=== PATIENT | female | born 1980 | race Caucasian/White ===

== ENCOUNTER 2017-09-14 08:14 | Inpatient (IN) | payer BC, OTHER ==
[~2017-09-14] VITALS: Ht 154.9 cm; Wt 84.0 kg
[~2017-09-14 08:14] MED LIST: DEXAMETHASONE 4 MG/ML 1 ML INJ ONE; GENT100P4 IV; GLYCOPYRROLATE 0.4 MG INJ ONE; NEOSTIGMINE 3 MG/3 ML SYRINGE ONE; ONDANSETRON 4 MG INJ ONE; TRAM50TA2 PO
[2017-09-14] MEDS ORDERED: ONDANSETRON 4 MG INJ IV STA ×3 (08:54→15:21)
[2017-09-14] MEDS ORDERED: SOD CHLORIDE 0.9% 1,000 ML IV STA ×2 (08:54→15:22)
[2017-09-14] MEDS ORDERED: morphine 4 MG/ML VIAL IV STA ×2 (08:54→11:18)
[2017-09-14] MEDS ORDERED: KETOROLAC 30 MG INJ IV STA (08:54)
[2017-09-14 09:47] LABS: ADD UMIC YES; UR ASCORBIC ACID 20 mg/dL (NEGATIVE); UR BACTERIA FEW /HPF (NONE SEEN); UR BILIRUBIN (Dip) NEGATIVE (NEGATIVE); UR BLOOD (Dip) 3+ mg/dL (NEGATIVE); UR CLARITY SLIGHTLY CLOUDY (CLEAR); UR COLOR YELLOW (YELLOW); UR GLUCOSE (Dip) NEGATIVE (NEGATIVE); UR KETONES (Dip) NEGATIVE (NEGATIVE); UR LEUKOCYTE ESTERASE (Dip) NEGATIVE Leu/ul (NEGATIVE); UR MUCUS FEW /HPF (NONE SEEN); UR NITRITE (Dip) NEGATIVE (NEGATIVE); UR RBC > 182 /HPF (0-5); UR SPECIFIC GRAVITY (Dip) 1.017 (1.003-1.030); UR TOTAL PROTEIN (Dip) 1+ mg/dl (NEGATIVE); UR UROBILINOGEN (Dip) NEGATIVE (NEGATIVE)
[2017-09-14 10:05] LABS: BASOPHILS % 0.2 % (0.0-2.0); EOSINOPHILS # 0.2 10^3/ul (0.0-0.5); EOSINOPHILS % 1.8 % (0.0-7.0); HEMATOCRIT 36.7 % (37.0-47.0); HEMOGLOBIN 10.9 g/dl (12.0-16.0); LYMPHOCYTES # 1.7 10^3/ul (0.8-2.9); LYMPHOCYTES % 19.3 % (15.0-51.0); MEAN CORPUSCULAR HEMOGLOBIN 22.1 pg (29.0-33.0); MEAN CORPUSCULAR HGB CONC 29.7 g/dl (32.0-37.0); MEAN CORPUSCULAR VOLUME 74.3 fl (82.0-101.0); MEAN PLATELET VOLUME 11.1 fl (7.4-10.4); MONOCYTE # 0.4 10^3/ul (0.3-0.9); MONOCYTES % 4.1 % (0.0-11.0); NEUTROPHIL # 6.6 10^3/ul (1.6-7.5); NEUTROPHILS % 74.3 % (39.0-77.0); PLATELET COUNT 267 10^3/UL (140-415); RED BLOOD COUNT 4.94 10^6/ul (4.20-5.40); WHITE BLOOD COUNT 8.8 10^3/ul (4.8-10.8)
[2017-09-14 10:16] LABS: INR 0.99; PROTIME 13.1 Sec (12.2-14.2)
[2017-09-14 10:20] LABS: ALBUMIN 4.1 g/dl (3.3-4.9); ALBUMIN/GLOBULIN RATIO 1.07; BILIRUBIN,INDIRECT 0.2 mg/dl (0-1.1); BILIRUBIN,TOTAL 0.2 mg/dl (0.2-1.3); CALCIUM 8.8 mg/dl (8.4-10.2); CREATININE 0.67 mg/dl (0.44-1.00); POTASSIUM 3.6 mmol/L (3.5-5.1); TOTAL PROTEIN 7.9 g/dl (6.1-8.1)
--- NOTE | 2017-09-14 10:23 | RADRPT ---
PROCEDURE: US Pelvis CLINICAL INDICATION: Right lower quadrant pain TECHNIQUE: Sonographic evaluation of the pelvis was performed utilizing both transabdominal and tr ansvaginal technique. Curved array transabdominal transducer technique as well as a high frequency endovaginal probe was utilized. Images were reviewed on the high-resolution PACS workstation. COMPARISON: No prior studies are available for comparison. FINDINGS: The uterus is mildly enlarged, measuring 12.2 x 6.3 x 7.3 cm in dimension. The uterus is anteverted in normal position. The endometrium is normal for a menstrual age female measuring 7.4 mm in diam eter. The normal trilaminar stripe of the endometrium is preserved. The right ovary measures 3.6 x 2.2 x 2.6 cm in dimension. The left ovary is not visualized. There i s a simple appearing left adnexal cyst measuring 13.8 x 14.3 x 9.5 cm. The ovaries are symmetric in size, echogenicity, and morphology. Normal Doppler flow is demonstrated to both ovaries. There ar e no adnexal masses. There is no significant free fluid in the pelvis. IMPRESSION: 1. Simple appearing left adnexal cyst measuring 13.8 x 14.3 x 9.5 cm. The left ovary is not visual ized. 2. Otherwise, unremarkable pelvic ultrasound. RPTAT: HH .Jenna Youssef MD, MD Date Time Electronically viewed and signed by .Jenna Youssef MD, MD on 09/14/2017 10:23 .G/
[2017-09-14] MEDS ORDERED: IOHEXOL 300MG/ML 150 ML BTL ONE (10:54)
[2017-09-14] MEDS ORDERED: SOD CHLORIDE 0.9% 100 ML ONE (10:54)
--- NOTE | 2017-09-14 12:06 | RADRPT ---
PROCEDURE: CT Abdomen and Pelvis with contrast. CLINICAL INDICATION: Right lower quadrant pain TECHNIQUE: CT of the abdomen and pelvis was performed on a multi-detector scanner following the un complicated IV administration of 100 cc of Omnipaque 300. Coronal and sagittal images were reformat magy from the axial data set. One or more of the following dose reduction techniques were used: auto mated exposure control, adjustment of the mA and/or kV according to patient size, use of iterative r econstruction technique. CTDI = 21.99 mGy. DLP = 1308.18 mGy-cm. COMPARISON: CT, 07/17/2016 FINDINGS: The lung bases are clear. The heart size is normal, without pericardial effusion. Hepatomegaly (21 cm) is noted, without evidence of focal mass. Gallbladder, biliary tree, pancreas, spleen and adren al glands are unremarkable. Benign renal cysts are noted. There is question of subtle heterogeneous renal enhancement bilaterally, greater on the right. No urolithiasis or obstructive uropathy is iden tified. The stomach is grossly unremarkable. There is no abdominal aortic aneurysm or dissection. There is no retroperitoneal lymphadenopathy. The adarsh hepatis region is clear. No bowel obstruction, free intraperitoneal air or abscess is identified. There is no diverticulosis, diverticulitis, colitis or appendicitis. Large cystic structure is identified arising from left ova ry, measuring 14.5 x 9.4 x 13.0 cm (previously 7.5 x 6.1 x 6.1 cm). No gross evidence of solid compo nent or internal septation is identified. Uterus and right ovary are grossly unremarkable. No solid pelvic mass, free fluid or lymphadenopathy is identified. The surrounding osseous structures are unremarkable. No osteolytic or osteoblastic lesion is detect ed. IMPRESSION: 1. Large 14.5 cm cystic lesion is seen arising from left ovary, significantly increased in size whe n compared to the prior CT. No gross evidence of solid component or internal septation is identified . 2. Both kidneys demonstrate subtle heterogeneous enhancement, possibly indicating mild pyelonephrit is. No renal abscess, urolithiasis or obstructive uropathy is identified. 3. Hepatomegaly is noted, without evidence of focal mass. 4. No solid mass or lymphadenopathy is identified. RPTAT: AAOO .Heber Rendon MD, MD Date Time Electronically viewed and signed by .Heber Rendon MD, MD on 09/14/2017 12:06 .R/
[2017-09-14] MEDS ORDERED: CEFTRIAXONE 1 GM/50 ML (PMX) 50 ML IVPB ONE (12:30)
[2017-09-14 14:09] VITALS: TEMP 98.2
[2017-09-14 16:12] VITALS: Ht 154.9 cm; Wt 84.0 kg
[2017-09-14 16:13] VITALS: BP 114/60; PULSE 69; RESP 16
--- NOTE | 2017-09-14 17:28 | CONS ---
Date/Time of Note Date/Time of Note DATE: 09/14/17 TIME: 17:08 Assessment/Plan Assessment/Plan Chief Complaint/Hosp Course SuddenLower abdominal pain, sharp, N/A Left large adnexal cystic lesion Left ovary was not visualized. Can not r/o left ovarian torsion. Due to persistent pain and large left adnexal cystic mass. Discussed with patient regarding surgery. Risk and benefit of the procedure including risk of infection, bleeding, damage to surrounding structures including bowel and bladder risk of oophorectomy possible salpingo-oophorectomy possible blood transfusion as well as risk of conversion to open procedure and risk of scar, pain as well as risk of blood transfusion in case if necessary including blood borne infection including HIV, hepatitis B and C and transfusion reaction discussed with the patient in detail and informed consent was obtained. Currently has been n.p.o . patient will be admitted Will be booked for the OR Consented for possible diagnostic laparoscopy possible open laparotomy, possible ovarian cystectomy, possible oophorectomy or salpingo-oophorectomy, possible lysis of adhesion, possible blood transfusion. 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 Per patient, pain was sharp, sudden onset, could not drive or walk. Associated with nausea and vomiting. The patient pain was in the right side in the right lower quadrant. Started with her menses. LMP September 12, 2017. Patient reports always having pain in the right side with menstruation but the pain was not severe as she experiencing since yesterday. Patient denies any fever or chills. Past medical history significant for history of obesity and irregular menstrual cycle. Per patient Menstrual cycles has been always irregular every 1-2 month for the last 8 years. Bleeding lasts about 5 days and heavy. Past OB history significant for history of 2 and had a BTL with the last . Patient had a pelvic CT that showed a large 14 x 5 cm cystic lesion arising from the left ovary significantly increase in the size when compared to prior CT with no gross evidence of solid component or internal septation. There is also evidence of hepatomegaly without evidence of focal mass no evidence of solid mass or lymphadenopathy noted in CT of the abdomen and pelvic ultrasound there is a simple appearing left adnexal cyst measuring 13.8 x 14.3 x 9.3 cm and the left ovary could not be visualized as well as blood flow to the left ovary. Subjective hx not possible: other (Stable) Eyes: no complaints ENT: no complaints Respiratory: no complaints Cardiovascular: no complaints Gastrointestinal: pain Genitourinary: no complaints Musculoskeletal: no complaints Skin: no complaints Neurologic: no complaints Endocrine: no complaints Lymphatic: no complaints Psychological: no complaints Immunologic: no complaints Past Medical History : Past medical history: Obesity Past Surgical History C/S x 3 adn BTL Social History Mother: DM Alcohol Use: none Smoking Status: Never smoker Drug Use: none Exam/Review of Systems Vital Signs Vitals Vital Signs Date Time Temp Pulse Resp B/P Pulse Ox O2 Delivery O2 Flow Rate FiO2 09/14/17 16:13 97.0 69 16 114/60 98 Room Air Exam Constitutional: alert, distress (in moderate distress ), oriented Psych: nl mood/affect, no complaints Head: atraumatic, normocephalic Eyes: EOMI, nl conjunctiva, nl lids ENMT: nl external ears & nose, nl lips & teeth, nl nasal mucosa & septum Neck: non-tender, supple Respiratory: clear to auscultation, normal air movement Cardiovascular: nl pulses, regular rate and rhythm Gastrointestinal: nl liver, spleen, non-tender, soft, tender (There is moderate tenderness in palpation in the LLQ noted. no rebound tenderness, no guarding, no rigidity.) Genitourinary - Female: other (A pelvic mass in the left side of the pelvis up to the level of 1 cm below the umbilicus, palpable in left side of plevis. 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, nl mental status, nl speech, nl strength Skin: nl turgor, rash or lesions Lymph: nl lymph nodes Results Result Diagram: 09/14/1715 09/14/17 0915 Results 24 hrs Laboratory Tests Test 09/14/17 09:00 09/14/17 09:15 Urine Color YELLOW Urine Clarity SLIGHTLY CLOUDY A Urine pH 6.0 Urine Specific [place] 1.017 Urine Ketones NEGATIVE Urine Nitrite NEGATIVE Urine Bilirubin NEGATIVE Urine Urobilinogen NEGATIVE Urine Leukocyte Esterase NEGATIVE Urine Microscopic RBC > 182 H Urine Microscopic WBC 56 H Urine Bacteria FEW A Urine Mucus FEW A Urine Hemoglobin 3+ H Urine Glucose NEGATIVE Urine Total Protein 1+ H White Blood Count 8.8 # Red Blood Count 4.94 # Hemoglobin 10.9 #L Hematocrit 36.7 #L Mean Corpuscular Volume 74.3 L Mean Corpuscular Hemoglobin 22.1 L Mean Corpuscular Hemoglobin Concent 29.7 L Red Cell Distribution Width 17.0 H Platelet Count 267 Mean Platelet Volume 11.1 #H Neutrophils % 74.3 Lymphocytes % 19.3 Monocytes % 4.1 Eosinophils % 1.8 Basophils % 0.2 Nucleated Red Blood Cells % 0.0 Neutrophils # 6.6 Lymphocytes # 1.7 Monocytes # 0.4 Eosinophils # 0.2 Basophils # 0.0 Nucleated Red Blood Cells # 0.0 Prothrombin Time 13.1 Prothrombin Time Ratio 1.0 INR International Normalized Ratio 0.99 Activated Partial Thromboplast Time 36.0 H Sodium Level 142 Potassium Level 3.6 Chloride Level 106 Carbon Dioxide Level 27 Anion Gap 13 Blood Urea Nitrogen 9 Creatinine 0.67 Glucose Level 101 Calcium Level 8.8 Total Bilirubin 0.2 Direct Bilirubin 0.00 Indirect Bilirubin 0.2 Aspartate Amino Transf (AST/SGOT) 23 Alanine Aminotransferase (ALT/SGPT) 30 Alkaline Phosphatase 122 H Total Protein 7.9 Albumin 4.1 Globulin 3.80 H Albumin/Globulin Ratio 1.07 Lipase 61 Serum HCG, Qualitative NEGATIVE Medications Medications Current Medications Lactated Ringer's (Lr) 1,000 ml @ 125 mls/hr Q8H IV ; Start 09/14/17 at 16:59 Ondansetron HCl (Zofran Inj) 4 mg Q4H PRN IV NAUSEA AND/OR VOMITING; Start at 17:30; Status UNV Morphine Sulfate (morphine) 2 mg Q2H PRN IV PAIN; Start 09/14/17 at 17:30; Status UNV Procedures Procedures PROCEDURE: CT Abdomen and Pelvis with contrast. CLINICAL INDICATION: Right lower quadrant pain TECHNIQUE: CT of the abdomen and pelvis was performed on a multi-detector scanner following the uncomplicated IV administration of 100 cc of Omnipaque 300. Coronal and sagittal images were reformatted from the axial data set. One or more of the following dose reduction techniques were used: automated exposure control, adjustment of the mA and/or kV according to patient size, use of iterative reconstruction technique. CTDI = 21.99 mGy. DLP = 1308.18 mGy-cm. COMPARISON: CT, 07/17/2016 FINDINGS: The lung bases are clear. The heart size is normal, without pericardial effusion. Hepatomegaly (21 cm) is noted, without evidence of focal mass. Gallbladder, biliary tree, pancreas, spleen and adrenal glands are unremarkable. Benign renal cysts are noted. There is question of subtle heterogeneous renal enhancement bilaterally, greater on the right. No urolithiasis or obstructive uropathy is identified. The stomach is grossly unremarkable. There is no abdominal aortic aneurysm or dissection. There is no retroperitoneal lymphadenopathy. The adarsh hepatis region is clear. No bowel obstruction, free intraperitoneal air or abscess is identified. There is no diverticulosis, diverticulitis, colitis or appendicitis. Large cystic structure is identified arising from left ovary, measuring 14.5 x 9.4 x 13.0 cm (previously 7.5 x 6.1 x 6.1 cm). No gross evidence of solid component or internal septation is identified. Uterus and right ovary are grossly unremarkable. No solid pelvic mass, free fluid or lymphadenopathy is identified. The surrounding osseous structures are unremarkable. No osteolytic or osteoblastic lesion is detected. IMPRESSION: 1. Large 14.5 cm cystic lesion is seen arising from left ovary, significantly increased in size when compared to the prior CT. No gross evidence of solid component or internal septation is identified. 2. Both kidneys demonstrate subtle heterogeneous enhancement, possibly indicating mild pyelonephritis. No renal abscess, urolithiasis or obstructive uropathy is identified. 3. Hepatomegaly is noted, without evidence of focal mass. 4. No solid mass or lymphadenopathy is identified. RPTAT: AAOO PROCEDURE: US Pelvis CLINICAL INDICATION: Right lower quadrant pain TECHNIQUE: Sonographic evaluation of the pelvis was performed utilizing both transabdominal and transvaginal technique. Curved array transabdominal transducer technique as well as a high frequency endovaginal probe was utilized. Images were reviewed on the high-resolution PACS workstation. COMPARISON: No prior studies are available for comparison. FINDINGS: The uterus is mildly enlarged, measuring 12.2 x 6.3 x 7.3 cm in dimension. The uterus is anteverted in normal position. The endometrium is normal for a menstrual age female measuring 7.4 mm in diameter. The normal trilaminar stripe of the endometrium is preserved. The right ovary measures 3.6 x 2.2 x 2.6 cm in dimension. The left ovary is not visualized. There is a simple appearing left adnexal cyst measuring 13.8 x 14.3 x 9.5 cm. The ovaries are symmetric in size, echogenicity, and morphology. Normal Doppler flow is demonstrated to both ovaries. There are no adnexal masses. There is no significant free fluid in the pelvis. IMPRESSION: 1. Simple appearing left adnexal cyst measuring 13.8 x 14.3 x 9.5 cm. The left ovary is not visualized. 2. Otherwise, unremarkable pelvic ultrasound. RPTAT: HH CLOVIS NICHOLAS MD Sep 14, 2017 17:19
[2017-09-14 17:37] LABS: HEMATOCRIT 34.5 % (37.0-47.0); HEMOGLOBIN 10.3 g/dl (12.0-16.0)
[2017-09-14] MEDS: ONDANSETRON 4 MG INJ IV PRN (18:10)
[2017-09-14] MEDS: LACTATED RINGER'S 1,000 ML IV SCH (18:11)
[2017-09-14] MEDS: morphine 2 MG INJ IV PRN ×2 (18:19→20:34)
[2017-09-14 19:15] LABS: CANCER ANTIGEN 125 64.5 U/ml (0.0-35.0)
[2017-09-14 19:18] LABS: CANCER ANTIGEN 19-9 54.9 U/ml (0.0-37.0)
[2017-09-14 19:34] LABS: CARCINOEMBRYONIC ANTIGEN < 0.3 ng/ml (0.0-5.0)
[2017-09-14 20:09] VITALS: BP 130/65; RESP 18
--- NOTE | 2017-09-14 20:47 | ERA ---
ER Documentation Chief Complaint Date/Time DATE: 09/14/17 Chief Complaint Abdominal pain/Pelvic pain HPI The patient is a 37-year-old female who presents to the Emergency Department with complaint of lower abdominal pain. The patient reports that her symptoms began yesterday, with onset of sudden, sharp pains to the lower abdomen, radiating towards the right lower quadrant. She reports associated nausea, with several episodes of nonbilious, nonbloody emesis. The patient has been constant since onset, though intermittently worsening in presentation. She rates her current pain as 9/10, but notes that she has not yet taken any medication for pain relief. She denies any fevers, sweats, chills, diarrhea, black/bloody stools, dysuria, flank pain, new vaginal discharge. Denies headache, dizziness, weakness. The patient does admit to history of ovarian cysts in the past. She is A0. Last menstrual period began on 09/11/2017, and has been heavier than usual. ROS All systems reviewed and are negative except as per history of present illness. Medications Home Meds Discontinued Scripts Gentamicin in NaCl, Iso-Osm (Gentamicin 100 mg/Ns 100 ml) 100 Mg/100 Ml Piggyback, 100 MG IV Q8 for 7 Days Prov:LESLIE SUAZO MD 07/20/16 Tramadol HCl (Tramadol HCl) 50 Mg Tablet, 50 MG PO Q6H Y for PAIN LEVEL 6-10 for 7 Days, #40 TAB Prov:LESLIE SUAZO MD 07/20/16 Allergies Allergies: Coded Allergies: penicillin G (Verified Allergy, Mild, SKIN RASHES, 09/14/17) PMhx/Soc History of Surgery: No Anesthesia Reaction: Yes Hx Neurological Disorder: No Hx Respiratory Disorders: No Hx Cardiac Disorders: No Hx Psychiatric Problems: No Hx Miscellaneous Medical Probl: No Hx Alcohol Use: No Hx Substance Use: No Hx Tobacco Use: No Smoking Status: Never smoker Physical Exam Vitals Vital Signs Date Time Temp Pulse Resp B/P Pulse Ox O2 Delivery O2 Flow Rate FiO2 09/14/17 08:26 97.7 74 20 133/68 100 Physical Exam GENERAL: Well-developed, well-nourished, in moderate distress secondary to pain. Crying. HEENT: Head is normocephalic, atraumatic. No scleral pallor or icterus. Pupils equal, round and reactive to light. Extraocular movements intact. Conjunctiva pink. Moist mucous membranes. NECK: Supple. Full range of motion. RESPIRATORY: Lungs are clear to auscultation bilaterally. Equal breath sounds. Normal expiratory effort. CARDIOVASCULAR: Regular rate and rhythm. S1 and S2 normal. GASTROINTESTINAL: Abdomen is soft and nondistended. Tenderness to palpation over the lower abdomen, RLQ > LLQ. Positive guarding. No pulsatile abdominal masses. Normal bowel sounds. FLANK: No CVA tenderness, no mass or swelling. BACK: No midline tenderness. EXTREMITIES: No clubbing, cyanosis, or edema. Normal skin perfusion. Moving all extremities. Muscle tone is normal. No focal swelling or erythema. Distal pulses are palpable, 2+ bilaterally. Capillary refill is less than 2 seconds. NEUROLOGIC: The patient is alert, awake, and oriented x 3. No focal neurologic deficits. INTEGUMENT: Skin is clean, dry and intact. PSYCHIATRIC: Appropriate; Cooperative. Result Diagram: 09/14/17 1726 09/14/17 0915 Results 24 hrs Laboratory Tests Test 09/14/17 09:00 09/14/17 09:15 Urine Color YELLOW Urine Clarity SLIGHTLY CLOUDY Urine pH 6.0 Urine Specific [place] 1.017 Urine Ketones NEGATIVEmg/dL Urine Nitrite NEGATIVEmg/dL Urine Bilirubin NEGATIVEmg/dL Urine Urobilinogen NEGATIVEmg/dL Urine Leukocyte Esterase NEGATIVELeu/ul Urine Microscopic RBC > 182/HPF Urine Microscopic WBC 56/HPF Urine Bacteria FEW/HPF Urine Mucus FEW/HPF Urine Hemoglobin 3+mg/dL Urine Glucose NEGATIVEmg/dL Urine Total Protein 1+mg/dl White Blood Count 8.810^3/ul Red Blood Count 4.9410^6/ul Hemoglobin 10.9g/dl Hematocrit 36.7% Mean Corpuscular Volume 74.3fl Mean Corpuscular Hemoglobin 22.1pg Mean Corpuscular Hemoglobin Concent 29.7g/dl Red Cell Distribution Width 17.0% Platelet Count 57944^3/UL Mean Platelet Volume 11.1fl Neutrophils % 74.3% Lymphocytes % 19.3% Monocytes % 4.1% Eosinophils % 1.8% Basophils % 0.2% Nucleated Red Blood Cells % 0.0/100WBC Neutrophils # 6.610^3/ul Lymphocytes # 1.710^3/ul Monocytes # 0.410^3/ul Eosinophils # 0.210^3/ul Basophils # 0.010^3/ul Nucleated Red Blood Cells # 0.010^3/ul Prothrombin Time 13.1Sec Prothrombin Time Ratio 1.0 INR International Normalized Ratio 0.99 Activated Partial Thromboplast Time 36.0Sec Sodium Level 142mmol/L Potassium Level 3.6mmol/L Chloride Level 106mmol/L Carbon Dioxide Level 27mmol/L Anion Gap 13 Blood Urea Nitrogen 9mg/dl Creatinine 0.67mg/dl Glucose Level 101mg/dl Calcium Level 8.8mg/dl Total Bilirubin 0.2mg/dl Direct Bilirubin 0.00mg/dl Indirect Bilirubin 0.2mg/dl Aspartate Amino Transf (AST/SGOT) 23IU/L Alanine Aminotransferase (ALT/SGPT) 30IU/L Alkaline Phosphatase 122IU/L Total Protein 7.9g/dl Albumin 4.1g/dl Globulin 3.80g/dl Albumin/Globulin Ratio 1.07 Lipase 61U/L Serum HCG, Qualitative NEGATIVE Current Medications Medications (Trade) Dose Ordered Sig/Maribel Route PRN Reason Start Time Stop Time Status Last Admin Dose Admin Sodium Chloride (NS) 1,000 ml @ 1,000 mls/hr Q1H STAT IV 09/14/17 08:54 09/14/17 09:53 DC 09/14/17 09:32 Morphine Sulfate (morphine) 4 mg ONCE STAT IV 09/14/17 08:54 09/14/17 08:56 DC 09/14/17 09:32 Ondansetron HCl (Zofran Inj) 4 mg ONCE STAT IV 09/14/17 08:54 09/14/17 08:56 DC 09/14/17 09:32 Ketorolac Tromethamine (Toradol) 30 mg ONCE STAT IV 09/14/17 08:54 09/14/17 08:56 DC 09/14/17 09:32 IV Flush 10 ml 10 ml STK-MED ONCE .ROUTE 09/14/17 10:54 09/14/17 10:55 DC Sodium Chloride (NS) 100 ml @ ud STK-MED ONCE .ROUTE 09/14/17 10:54 09/14/17 10:55 DC Iohexol (Omnipaque 300mg/ ml) 150 ml STK-MED ONCE .ROUTE 09/14/17 10:54 09/14/17 10:55 DC Morphine Sulfate 4 mg 4 mg ONCE STAT IV 09/14/17 11:18 09/14/17 11:19 DC 09/14/17 11:27 Ceftriaxone Sodium (Rocephin) 50 ml @ 100 mls/hr ONCE ONCE IVPB 09/14/17 12:30 09/14/17 12:59 DC 09/14/17 12:26 Procedures/MDM The patient's case was reviewed and discussed with Dr. Ruiz, who agree with the plan of care including labs, treatment, and advanced imaging as appropriate. DIAGNOSTIC TESTS AND INTERPRETATION: PROCEDURE: CT Abdomen and Pelvis with contrast. CLINICAL INDICATION: Right lower quadrant pain TECHNIQUE: CT of the abdomen and pelvis was performed on a multi-detector scanner following the uncomplicated IV administration of 100 cc of Omnipaque 300. Coronal and sagittal images were reformatted from the axial data set. One or more of the following dose reduction techniques were used: automated exposure control, adjustment of the mA and/or kV according to patient size, use of iterative reconstruction technique. CTDI = 21.99 mGy. DLP = 1308.18 mGy-cm. COMPARISON: CT, 07/17/2016 FINDINGS: The lung bases are clear. The heart size is normal, without pericardial effusion. Hepatomegaly (21 cm) is noted, without evidence of focal mass. Gallbladder, biliary tree, pancreas, spleen and adrenal glands are unremarkable. Benign renal cysts are noted. There is question of subtle heterogeneous renal enhancement bilaterally, greater on the right. No urolithiasis or obstructive uropathy is identified. The stomach is grossly unremarkable. There is no abdominal aortic aneurysm or dissection. There is no retroperitoneal lymphadenopathy. The adarsh hepatis region is clear. No bowel obstruction, free intraperitoneal air or abscess is identified. There is no diverticulosis, diverticulitis, colitis or appendicitis. Large cystic structure is identified arising from left ovary, measuring 14.5 x 9.4 x 13.0 cm (previously 7.5 x 6.1 x 6.1 cm). No gross evidence of solid component or internal septation is identified. Uterus and right ovary are grossly unremarkable. No solid pelvic mass, free fluid or lymphadenopathy is identified. The surrounding osseous structures are unremarkable. No osteolytic or osteoblastic lesion is detected. IMPRESSION: 1. Large 14.5 cm cystic lesion is seen arising from left ovary, significantly increased in size when compared to the prior CT. No gross evidence of solid component or internal septation is identified. 2. Both kidneys demonstrate subtle heterogeneous enhancement, possibly indicating mild pyelonephritis. No renal abscess, urolithiasis or obstructive uropathy is identified. 3. Hepatomegaly is noted, without evidence of focal mass. 4. No solid mass or lymphadenopathy is identified. .Heber Rendon MD, Date Time Electronically viewed and signed by .Heber Rendon MD, MD on 09/14/2017 12: 06 PROCEDURE: US Pelvis CLINICAL INDICATION: Right lower quadrant pain TECHNIQUE: Sonographic evaluation of the pelvis was performed utilizing both transabdominal and transvaginal technique. Curved array transabdominal transducer technique as well as a high frequency endovaginal probe was utilized. Images were reviewed on the high-resolution PACS workstation. COMPARISON: No prior studies are available for comparison. FINDINGS: The uterus is mildly enlarged, measuring 12.2 x 6.3 x 7.3 cm in dimension. The uterus is anteverted in normal position. The endometrium is normal for a menstrual age female measuring 7.4 mm in diameter. The normal trilaminar stripe of the endometrium is preserved. The right ovary measures 3.6 x 2.2 x 2.6 cm in dimension. The left ovary is not visualized. There is a simple appearing left adnexal cyst measuring 13.8 x 14.3 x 9.5 cm. The ovaries are symmetric in size, echogenicity, and morphology. Normal Doppler flow is demonstrated to both ovaries. There are no adnexal masses. There is no significant free fluid in the pelvis. IMPRESSION: 1. Simple appearing left adnexal cyst measuring 13.8 x 14.3 x 9.5 cm. The left ovary is not visualized. 2. Otherwise, unremarkable pelvic ultrasound. .Jenna Youssef MD, Date Time Electronically viewed and signed by .Jenna Youssef MD, on 09/14/2017 10 :23 EMERGENCY DEPARTMENT COURSE: The patient was stable throughout ED course. I kept the patient informed of laboratory and diagnostic imaging results throughout the ED course. Upon arrival, IV access established by ED RN. Fluids, Toradol, Morphine, Zofran ordered. Laboratory testing, US imaging and CT abdomen and pelvis ordered. Urinalysis with 56 WBCs. Rocephin 1 gram IV administered. CONSULTATION: Radiologist, Dr. Jenna Youssef: States that there is a typo in her report. Per Dr. Youssef, only the patient's right ovary was visualized, and had normal Doppler flow. The left ovary was not visualized, and therefore no Doppler flow was noted. PNEUMATIC TUBE FITTER on-call, Dr. Shipley: Will come evaluate patient bedside and perform pelvic examination. Accepts patient for admission and will take the patient to the OR. MEDICAL DECISION MAKING: This is a 37-year-old female presenting to the Emergency Department with complaint of sudden, sharp, lower abdominal/pelvic pain. Patient was noted to have tenderness over the lower abdomen on physical examination. Differential diagnosis includes, but is not limited to, appendicitis, cholecystitis, abdominal aortic aneurysm, Crohn's disease, diverticulitis, ectopic , endometriosis, herpes zoster, nephrolithiasis , intra-abdominal abscess, PID, ovarian torsion, ovarian cyst, mesenteric lymphadenitis, Meckel's diverticulum, ischemic colitis, mesenteric ischemia, inguinal hernia, tubo-ovarian abscess, abdominal aortic aneurysm, gastroenteritis, cervicitis, cystitis. test is negative. US imaging was performed, which revealed a simple appearing left adnexal cyst measuring 13.8 x 14.3 x 9.5 cm in dimensions. The patient's left ovary is not visualized. Given patient's presentation and imaging findings, there is concern for possible torsion/intermittent torsion. As left ovary was not visualized, could not confirm Doppler flow to that region. PNEUMATIC TUBE FITTER consulted, and will accept patient for admission and surgical management. CT imaging was performed, confirming presence of the same 14.5 x 9.4 x 13.0 cm cystic structure arising from the patient's left ovary. Prior imaging revealed a similar cyst, though much smaller, at 7.5 x 6.1 x 6.1 cm. Otherwise, no evidence of gallbladder, biliary tree, pancreas, spleen, or adrenal gland abnormality. No evidence of bowel obstruction, free intraperitoneal air, abscess, diverticulitis, colitis, appendicitis, pericardial effusion, abdominal aortic aneurysm or dissection. Patient does not meet SIRS or sepsis criteria. Urinalysis did reveal 56 WBCs, concerning for urinary infection. Rocephin 1 gram IV administered. Additionally , greater than 182 RBCs were noted. Patient is currently on her menstrual cycle. At this time, the patient will be admitted, under the care of Dr. Shipley , for further evaluation and management. Departure Diagnosis: Primary Impression: Adnexal mass Additional Impressions: Left ovarian cyst Acute pelvic pain Acute cystitis with hematuria Condition: NORM Wallace PA-C Sep 14, 2017 20:47
[2017-09-14] MEDS ORDERED: BUPIVACAINE 0.5%/EPI (SDV) 30 ML INJ ONE (21:34)
[2017-09-14] MEDS ORDERED: MIDAZOLAM 1 MG/ML 2 ML INJ ONE (21:35)
[2017-09-14] MEDS ORDERED: ROCURONIUM 50 MG INJ ONE (21:35)
[2017-09-14] MEDS ORDERED: LIDOCAINE 2% (SDV) 5 ML INJ ONE (21:35)
[2017-09-14] MEDS ORDERED: PROPOFOL 20 ML ONE (21:35)
[2017-09-14] MEDS ORDERED: ROPIVACAINE 0.2% 20 ML VIAL ONE (21:38)
[2017-09-14] MEDS ORDERED: CEFAZOLIN 1 GM INJ ONE (22:03)
[2017-09-15] VITALS (16 sets, daily range): BP systolic 99–133; BP diastolic 51–71; PULSE 70–104; RESP 16–26
[2017-09-15] MEDS ORDERED: DEXAMETHASONE 4 MG/ML 1 ML INJ ONE (00:13)
[2017-09-15] MEDS ORDERED: ONDANSETRON 4 MG INJ ONE (00:13)
[2017-09-15] MEDS ORDERED: HEMOSTATIC MATRIX SYG INJ ONE (00:25)
[2017-09-15] MEDS ORDERED: NEOSTIGMINE 3 MG/3 ML SYRINGE ONE (00:35)
[2017-09-15] MEDS ORDERED: GLYCOPYRROLATE 0.4 MG INJ ONE (00:35)
[2017-09-15] MEDS ORDERED: FENTAnyl 50 MCG/ML VIAL ONE (00:47)
[2017-09-15] MEDS: LACTATED RINGER'S 1,000 ML IV SCH ×2 (00:59→12:05)
[2017-09-15] MEDS ORDERED: DIPHENHYDRAMINE 50 MG INJ IV PRN (01:00)
[2017-09-15] MEDS ORDERED: MEPERIDINE 25 MG INJ IV PRN (01:00)
[2017-09-15] MEDS ORDERED: ONDANSETRON 4 MG INJ IV PRN (01:00)
[2017-09-15] MEDS ORDERED: METOCLOPRAMIDE 10 MG INJ IV PRN (01:00)
[2017-09-15] MEDS ORDERED: TRIMETHOBENZAMIDE 100 MG/ML VIAL IM PRN (01:00)
[2017-09-15] MEDS ORDERED: HYDROmorphONE (0.2 MG/ML) 10ML SYG IV PRN ×2 (01:00)
[2017-09-15] MEDS ORDERED: morphine 2 MG INJ IV PRN (01:30)
[2017-09-15] MEDS ORDERED: HYDROCODONE/APAP (5/325) TAB PO PRN (01:30)
--- NOTE | 2017-09-15 01:31 | OPR ---
Date/Time of Note Date/Time of Note DATE: 09/15/17 TIME: 01:11 Operative Report Free Text/Dictation 37 years old female female with Significant abdominal pain and nausea and vomiting started since last night noted to have an large left-sided adnexal cystic mass. Patient cannulated for diagnostic laparoscopy possible laparoscopic cystectomy possible open possible salpingectomy possible salpingo-oophorectomy possible blood transfusion. Risk and benefit of procedure including risk of infection, bleeding damage to surrounding structures including bowel and bladder and risk of blood transfusion including but not limited to blood borne infection including HIV, hepatitis B and C and transfusion reactions discussed with the patient and informed consent was obtained. Patient verbalized understanding possibility and risk for oophorectomy and risk of conversion to open procedure. All questions were answered to the patient's best satisfaction. Imaging reviewed that showed simple cystic adnexal mass. Tumor markers consistent with likely benign adnexal mass as well as ultrasound findings. Informed consent was obtained and patient was then taken to the operating room. Procedure Date: Sep 15, 2017 Preoperative Diagnosis Significant pelvic and abdominal pain Left-sided cystic large adnexal mass Postoperative Diagnosis Left sided paraovarian versus paratubal simple smooth surface benign looking adnexal mass. Ovary adjacent to the cystic mass and looks normal as well as small remainder of the left tube. Right ovary appeared to be normal. Stump of both tubes related to prior tubal sterilization noted. Evidence of extensive pelvic adhesion with evidence of omental appendectomy adhesion to the abdominal wall as well as the anterior surface of the uterus to anterior abdominal wall noted. Cystic left adnexal mass with smooth surface with no adhesions or adjacent structures mobile with no evidence of vegetation on the surface. Appeared benign Operation/Procedure Performed 1. Diagnostic laparoscopy #2 Laparoscopic resection of left paraovarian versus paratubal cyst #3 lysis of omental adhesion Surgeon see signature line Ely Shipley Reel Stripper Donaldo Redding MD Anesthesia Type: general Anesthesiologist: KENNETH SHANNON DO Estimated Blood Loss: 50 - 100 ml's Transfusion none Specimen Left adnexal cyst wall Fluid of cyst was sent to cytology Grafts/Implants none Tubes/Drains None Complications none Pt Condition Post Procedure: stable Disposition: PACU Indications Significant lower abdominal pain with nausea and vomiting Large left-sided adnexal cystic structure Procedure Description After discussion with the patient about the risk and benefit of procedure as above informed consent was obtained. Patient was consented for diagnostic laparoscopy possible laparoscopic ovarian cystectomy possible oophorectomy possible salpingo-oophorectomy possible open and possible blood transfusion. Informed consent was obtained. Patient was then received 2 g of Ancef prior to be taken to the operating room. Patient was then taken to the operating room and was placed in the dorsal lithotomy position and placed under general adequate endotracheal anesthesia. Timeout was procedure was performed. Patient was identified correctly. Examined anesthesia performed and there was evidence of some fullness in the left side of the pelvic sidewall. After prepped and draped in the dorsolithotomy position. First a bivalve speculum was placed inside the vagina. Anterior lip of the cervix was grasped using tenaculum. Then uterine depth was measured using uterine sound was noted to be 12 cm. Using Hegar dilators the cervix was serially dilated until it could accommodate a HUMI manipulator. A HUMI manipulator was then passed through the cervix to the uterine cavity and its balloon was inflated and transfixed. Tenaculum was removed from the cervix. Speculum removed from vagina. Gloves were changed. Attention was turned to the abdomen. The midclavicular line in the left side was identified and it was marked at 2-3 cm below the costal ridge in the left midclavicular line. After injection of about 4 cc quarter percent Marcaine in this area a 5 mm incision was made using scalpel. Then a Veress needle was passed through the abdominal wall into the abdomen while tenting the abdomen up. 2 snap sound was heard. Negative suction and positive saline drop test confirmed correct intra-abdominal placement of Veress needle. Insufflation started using CO2 gas. Opening pressure was noted to be 4. After insufflation about 2.8 L of CO2 gas then a Veress needle was removed then using a 5 mm trocar Optiview under direct visualization passed through the abdominal wall into the abdomen. Insufflation was a started. The pelvis was evaluated after adequate insufflation while the patient was in Trendelenburg position. There was evidence of omental adhesion to the anterior abdominal wall as well as the uterus was adhesed in the right lower side to the anterior abdominal wall. There was a cystic structure in the left adnexa that was separate from the ovary with smooth surface with no evidence of vegetation and looks benign. This was accompanied with the left tube and it appeared to be a paraovarian versus a paratubal large cyst. The size of the cyst was about 15 x 15 cm and it was mobile with no evidence of adhesion to adjacent structures or pelvic sidewall. There was evidence of prior tubal sterilization with remainder of the stump of both tubes were noted. Then the right tube was noted to be normal as well as the right ovary. At this point first and incision a 5 mm incision in the umbilicus was made with a scalpel and using a 5 mm trocar under direct visualization and passed into the abdominal wall a second trocar was placed. The third trocar was placed at the level of umbilicus in the right lower quadrant after negative transillumination test under direct visualization. Then at first using found to repeat them omental adhesions to the anterior abdominal wall carefully was lysed with careful attention to the bowel and other pelvic and abdominal structures. Then the left adnexal cyst was then carefully lysed by clamped click and coagulation of the cyst along the mesosalpinx. Due to the large size of the cyst if deemed necessary to aspirate some of the cyst fluid prior to completely resect the cyst in order to obtain adequate anatomy. After suctioning and aspiration of the cyst enough to decompress the cyst in order to obtain anatomy than the cyst was completely resected from the ovary and then it was placed in the anterior cul-de-sac. Hemostasis of the ovary was obtained using standard beat. Then the right lower trocar site was extended in order to accommodate placement of a 12 mm trocar that was placed under direct visualization to the abdomen without any complication. Then the Endobag through these trocar site was passed to the pelvis and the decompressed cyst was placed into the Endobag was delivered through the right lower 12 mm trocar site. Of note that the risks of the fluid was also aspirated while the cyst was inside the bag and the cyst wall was removed into the bag in them for pieces in order to adequately decompress to remove from the small port site. Then the pelvis was evaluated. Excellent hemostasis of the operative site was confirmed. The upper abdomen as well as the lower abdomen again reevaluated and visualized and confirmed adequate hemostasis. No concern to damage to any pelvic structures was noted. Suctioning and irrigation of the pelvis was performed and using negative pressure check excellent hemostasis of the operative site was confirmed including cyst. Then the 12 mm trocar site was repaired using a single 1-0 Vicryl using Renan Gold device under direct visualization and then after desufflation of the abdomen and pelvis after confirming adequate hemostasis and placing some FloSeal and the operative site then the port sites were open and gas was released from the abdomen completely by opening all to port sites. Then the trochars were removed from these port sites and the skin was reapproximated using 3-0 Monocryl in a subcuticular fashion and the skin was reapproximated using Dermabond. Then attention was turned to the vagina. Noted that a HUMI manipulator was spontaneously out during the end part of the procedure. Then the cervix and vagina was evaluated. Excellent hemostasis of the lip of the cervix was confirmed. And Dubois was inside the bladder and was draining clear yellow urine. Patient tolerated the procedure well. Sponge lap and needle count were correct 2. Patient was transferred to recovery in stable condition ELY SHIPLEY MD Sep 15, 2017 01:31
[2017-09-15] MEDS: morphine 2 MG INJ IV PRN ×2 (13:34→16:02)
--- NOTE | 2017-09-15 15:54 | DS ---
Date/Time of Note Date/Time of Note DATE: 09/15/17 TIME: 15:43 Discharge Summary Admission/Discharge Info Admit Date/Time September 15, 2017 Discharge summary This patient is a 27 years old 3 para 342 section in the past with the tubal ligation with the last her last menstrual period was September 12, 2017. However she was always having irregular menstrual periods in the past few months. She came to the emergency room yesterday complaining of abdominal pain associated with nausea and vomiting for the past 6 hours. on the ultrasound study as well as the CAT scan a cystic mass measuring 13.8 x 14.3 x 9.3 which was a clear cystic mass in the left adnexal area noted. . The mass appeared to be an ovarian or paraovarian cyst with some degree of torsion. clinical findings as well as the ultrasound study was reviewed with the patient and she agreed to undergo a laparoscopy and if needed laparotomy for this procedure to remove the tumor Laboratory Tests Test 09/14/17 17:26 Hemoglobin 10.3g/dl Hematocrit 34.5% Carcinoembryonic Antigen < 0.3ng/ml CA 19-9 Antigen 54.9U/ml CA 125 Antigen 64.5U/ml Current Medications Medications (Trade) Dose Ordered Sig/Maribel Route PRN Reason Start Time Stop Time Status Last Admin Dose Admin Sodium Chloride (NS) 1,000 ml @ 1,000 mls/hr Q1H STAT IV 09/14/17 08:54 09/14/17 09:53 DC 09/14/17 09:32 Morphine Sulfate (morphine) 4 mg ONCE STAT IV 09/14/17 08:54 09/14/17 08:56 DC 09/14/17 09:32 Ondansetron HCl (Zofran Inj) 4 mg ONCE STAT IV 09/14/17 08:54 09/14/17 08:56 DC 09/14/17 09:32 Ketorolac Tromethamine (Toradol) 30 mg ONCE STAT IV 09/14/17 08:54 09/14/17 08:56 DC 09/14/17 09:32 IV Flush 10 ml 10 ml STK-MED ONCE .ROUTE 09/14/17 10:54 09/14/17 10:55 DC Sodium Chloride (NS) 100 ml @ ud STK-MED ONCE .ROUTE 09/14/17 10:54 09/14/17 10:55 DC Iohexol (Omnipaque 300mg/ ml) 150 ml STK-MED ONCE .ROUTE 09/14/17 10:54 09/14/17 10:55 DC Morphine Sulfate 4 mg 4 mg ONCE STAT IV 09/14/17 11:18 09/14/17 11:19 DC 09/14/17 11:27 Ceftriaxone Sodium (Rocephin) 50 ml @ 100 mls/hr ONCE ONCE IVPB 09/14/17 12:30 09/14/17 12:59 DC 09/14/17 12:26 Ondansetron HCl (Zofran Inj) 4 mg ONCE STAT IV 09/14/17 15:11 09/14/17 15:12 DC Ondansetron HCl 4 mg 4 mg ONCE STAT IV 09/14/17 15:21 09/14/17 15:22 DC Sodium Chloride 1,000 ml @ 1,000 mls/hr Q1H STAT IV 09/14/17 15:22 09/14/17 16:21 DC Lactated Ringer's (Lr) 1,000 ml @ 125 mls/hr Q8H IV 09/14/17 16:59 09/15/17 12:05 Ondansetron HCl (Zofran Inj) 4 mg Q4H PRN IV NAUSEA AND/OR VOMITING 09/14/17 17:30 09/14/17 18:10 Morphine Sulfate (morphine) 2 mg Q2H PRN IV PAIN 09/14/17 17:30 09/15/17 13:34 Bupivacaine HCl/ Epinephrine Bitart (Marcaine 0.5%/ Epi (Sdv)) 30 ml STK-MED ONCE .ROUTE 09/14/17 21:34 09/14/17 21:35 DC 09/14/17 22:35 Lidocaine 100 mg 100 mg STK-MED ONCE .ROUTE 09/14/17 21:35 09/14/17 21:36 DC Propofol (Diprivan) 20 ml @ ud STK-MED ONCE .ROUTE 09/14/17 21:35 09/14/17 21:36 DC Rocuronium [place] (Zemuron) 50 mg STK-MED ONCE .ROUTE 09/14/17 21:35 09/14/17 21:36 DC Midazolam HCl 2 mg 2 mg STK-MED ONCE .ROUTE 09/14/17 21:35 09/14/17 21:36 DC Fentanyl (Sublimaze) 5 ml @ ud STK-MED ONCE .ROUTE 09/14/17 21:35 09/14/17 21:36 DC Ropivacaine (Naropin 0.2%) 20 ml STK-MED ONCE .ROUTE 09/14/17 21:38 09/14/17 21:39 DC Cefazolin Sodium (Ancef) 1 gm STK-MED ONCE .ROUTE 09/14/17 22:03 09/14/17 22:04 DC Ondansetron HCl (Zofran Inj) 4 mg STK-MED ONCE .ROUTE 09/15/17 00:13 09/15/17 00:14 DC Dexamethasone (Decadron) 4 mg STK-MED ONCE .ROUTE 09/15/17 00:13 09/15/17 00:14 DC Microfibriller Collagen Hemostat (Surgiflo) 1 ea STK-MED ONCE INJ 09/15/17 00:25 09/15/17 00:26 DC 09/15/17 00:25 Glycopyrrolate (Robinul) 0.4 mg STK-MED ONCE .ROUTE 09/15/17 00:35 09/15/17 00:36 DC Neostigmine Methylsulfate (Neostigmine) 3 mg STK-MED ONCE .ROUTE 09/15/17 00:35 09/15/17 00:36 DC Hydromorphone HCl (Dilaudid (Rec)) 0.2 mg PACU ORDER PRN IV MILD PAIN LEVEL 1-3 09/15/17 01:00 09/15/17 05:00 DC Hydromorphone HCl (Dilaudid (Rec)) 0.4 mg PACU ORDER PRN IV MODERATE PAIN LEVEL 4-6 09/15/17 01:00 09/15/17 05:00 DC 09/15/17 01:59 Ondansetron HCl (Zofran Inj) 4 mg PACU ORDER PRN IV NAUSEA AND/OR VOMITING 09/15/17 01:00 09/15/17 05:00 DC Metoclopramide HCl (Reglan) 10 mg PACU ORDER PRN IV NAUSEA AND/OR VOMITING 09/15/17 01:00 09/15/17 05:00 DC 09/15/17 01:59 Trimethobenzamide HCl (Tigan) 200 mg PACU ORDER PRN IM NAUSEA AND/OR VOMITING 09/15/17 01:00 09/15/17 05:00 DC Meperidine HCl (Demerol) 25 mg PACU ORDER PRN IV POST-OP RIGORS 09/15/17 01:00 09/15/17 05:00 DC Diphenhydramine HCl (Benadryl) 25 mg PACU ORDER PRN IV PRURITUS 09/15/17 01:00 09/15/17 05:00 DC Fentanyl (Sublimaze) 100 mcg STK-MED ONCE .ROUTE 09/15/17 00:47 09/15/17 00:48 DC Acetaminophen/ Hydrocodone Bitart ([place] (5/325)) 1 tab Q4H PRN PO PAIN LEVEL 6-10 09/15/17 01:30 Morphine Sulfate (morphine) 2 mg Q2H PRN IV BREAKTHROUGH PAIN 09/15/17 01:30 . . She subsequently underwent a laparoscopic procedure and removal of large left paratubal cyst which was somewhat twisted Her surgery went without complication last night and this morning she is doing fairly well I have seen her around noontime she is afebrile abdomen is soft slight abdominal pain she is ambulatory her hemoglobin and hematocrit did not change much and she and her would like to be discharged home for this reason I gave her a prescription for pain medication and advised her to rest at home because still there is a possibility of problems including dizziness and fall. And to do a follow-up in 1 week in her physician's office. She understands all of these recommendations and is discharged home to be followed in the clinic. Discharge Date/Time September 15, 2017 at around 3:00 in the afternoon Patient Condition: Stable Procedures Exploratory laparoscopy removal large cystic primary paratubal structure Lysis of adhesions Hx of Present Illness As described above Hospital Course As I mentioned after the preliminary study she underwent a laparoscopic procedure removing large left adnexal cystic mass Today she is doing fairly well and insists on going home . Home Meds Discontinued Scripts Gentamicin in NaCl, Iso-Osm (Gentamicin 100 mg/Ns 100 ml) 100 Mg/100 Ml Piggyback, 100 MG IV Q8 for 7 Days Prov:LESLIE SUAZO MD 07/20/16 Tramadol HCl (Tramadol HCl) 50 Mg Tablet, 50 MG PO Q6H Y for PAIN LEVEL 6-10 for 7 Days, #40 TAB Prov:LESLIE SUAZO MD 07/20/16 Primary Care Provider Time spent on discharge: > 30 minutes Pending Labs Laboratory Tests Test 09/14/17 17:26 Hemoglobin 10.3g/dl (12.0-16.0) Hematocrit 34.5% (37.0-47.0) Carcinoembryonic Antigen < 0.3ng/ml (0.0-5.0) CA 19-9 Antigen 54.9U/ml (0.0-37.0) CA 125 Antigen 64.5U/ml (0.0-35.0) EVANGELIST BOOTH MD Sep 15, 2017 15:53
[2017-09-15] MEDS: ONDANSETRON 4 MG INJ IV PRN (16:02)
== END 2017-09-15 17:25 | disposition home or self-care (01) | DRG 742 ==
LOC: FTE 08:14 → PP2 13:16
PROVIDERS: ADMIT Obstetrics & Gynecology Obstetrics; ATTEND Obstetrics & Gynecology Obstetrics
PROC: 0UB14ZZ Excision of Left Ovary, Percutaneous Endoscopic Approach (ICD-10-PCS; principal; 2017-09-15)
DX: D27.1 Benign neoplasm of left ovary (principal); N30.01 Acute cystitis with hematuria
CPT/HCPCS: 36415; 74177; 76830; 76856; 80053; 81001; 82378; 83690; 84703; 85014; 85018; 85025; 85610; 85730; 86301; 86304; 86850; 86900; 86901; 88104; 88305; 96374; 96375; 96376; J0690; J0696; J1100; J1170; J1885; J2250; J2270; J2405; J2710; J2765; J2795; J3010; J7030; J7120; Q9967

== ENCOUNTER 2018-05-27 22:56 | Emergency (ER) | END 2018-05-28 04:01 | disposition home or self-care (01) ==

== ENCOUNTER 2018-08-30 09:19 | Emergency (ER) | END 2018-08-30 11:34 | disposition home or self-care (01) ==

== ENCOUNTER 2018-11-30 06:48 | Emergency (ER) | payer OTHER ==
[~2018-11-30] VITALS: Ht 154.9 cm; Wt 88.5 kg
[~2018-11-30 06:48] MED LIST changes: -DEXAMETHASONE 4 MG/ML 1 ML INJ ONE; -GENT100P4 IV; -GLYCOPYRROLATE 0.4 MG INJ ONE; +HYDR-3029 PO; +HYDR-3980 PO; +HYDR25TA6 PO; +IBUP800T48 PO; -NEOSTIGMINE 3 MG/3 ML SYRINGE ONE; -ONDANSETRON 4 MG INJ ONE; -TRAM50TA2 PO
[2018-11-30 06:50] VITALS: BP 140/80; PULSE 68; RESP 18; Ht 154.9 cm; Wt 88.5 kg
[2018-11-30] MEDS ORDERED: PSEU-79 PO (07:10)
[2018-11-30] MEDS ORDERED: AZIT250T PO (07:10)
[2018-11-30] MEDS ORDERED: PROM6.2515 PO (07:10)
[2018-11-30] MEDS ORDERED: BENZ-6 PO (07:10)
--- NOTE | 2018-11-30 08:46 | ERD ---
ER Documentation Chief Complaint Chief Complaint cold symptoms x 4 days, right ear pain x1 day HPI 38 yr old female complaining of cold symptoms x 4 days. Patient has dry cough and ear pain. No fever. Has not taken medication for symptoms. No sick contacts. No other medical problems. Allergies PCN. Surgical history: Csection, cystectomy. social: denies ROS All systems reviewed and are negative except as per history of present illness. Medications Home Meds Active Scripts Benzonatate* (Tessalon Perle*) 100 Mg Capsule, 100 MG PO Q8H PRN for COUGH, #30 CAP Prov:SAMY MAURICIO PA-C 11/30/18 Pseudoephedrine Hcl* (Suphedrin*) 30 Mg Tablet, 30 MG PO Q6 PRN for CONGESTION, #30 TAB Prov:SAMY MAURICIO PA-C 11/30/18 Promethazine Hcl* (Promethazine Hcl* Syrup) 6.25 Mg/5 Ml Syrup, 6.25 MG PO Q6H PRN for COUGH, #100 ML Prov:SAMY MAURICIO PA-C 11/30/18 Azithromycin* (Zithromax*) 250 Mg Tablet, 250 MG PO .ZPACK DIRECTED, #6 TAB TAKE 500 MG (2 TABS) THE FIRST DAY THEN 250 MG (1 TAB) DAYS 2-5 Prov:SAMY MAURICIO PA-C 11/30/18 Hydroxyzine Hcl* (Hydroxyzine Hcl*) 10 Mg Tablet, 10 MG PO Q6H PRN for ANXIETY, #30 TAB Prov:SAMY MAURICIO PA-C 08/30/18 Hydrochlorothiazide* (Hydrochlorothiazide*) 25 Mg Tab, 25 MG PO DAILY, #30 TAB Prov:SAMY MAURICIO PA-C 08/30/18 Hydrocodone/Acetaminophen (Neligh 10-325 Tablet) 1 Each Tablet, 1 TAB PO Q6H PRN for PAIN, #20 TAB Prov:ALEXANDRA BELL DO 05/28/18 Ibuprofen* (Motrin*) 800 Mg Tab, 800 MG PO Q6H PRN for PAIN AND OR ELEVATED TEMP, #30 TAB Prov:TATY BELLSTKELLS Ricki DO 05/28/18 Allergies Allergies: Coded Allergies: penicillin G (Verified Allergy, Mild, SKIN RASHES, 11/30/18) PMhx/Soc History of Surgery: Yes (ovarian cyst removed 2017) Anesthesia Reaction: Yes Hx Neurological Disorder: No Hx Respiratory Disorders: No Hx Cardiac Disorders: No Hx Psychiatric Problems: Yes (anxiety) Hx Miscellaneous Medical Probl: No Hx Alcohol Use: Yes (social) Hx Substance Use: No Hx Tobacco Use: No Smoking Status: Never smoker FmHx Family History: No diabetes, No coronary disease, No other Physical Exam Vitals Vital Signs Date Temp Pulse Resp B/P (MAP) Pulse Ox O2 O2 Flow FiO2 Time Delivery Rate 11/30/18 98.5 68 18 140/80 97 06:50 (100) Physical Exam GENERAL: The patient is well-appearing, well-nourished, in no acute distress HEENT: Atraumatic. Conjunctivae are pink. Pupils equal, round, and reactive to light. There is no scleral icterus. Tympanic membranes clear bilaterally. Oropharynx clear. NECK: C-spine is soft and supple. There is no meningismus. There is no cervical lymphadenopathy. CHEST: Clear to auscultation bilaterally. There are no rales, wheezes or r honchi. HEART: Regular rate and rhythm. No murmurs, clicks, rubs or gallops. No S3 or S4. Procedures/MDM MDM: 38 yr old female complaining of URI images with cough. Patient is discharged with supportive medications. Patient is complaining of ear pain and unable to do ear exam secondary to cerumen impaction so I will treat with antibiotics. Patient is told if symptoms change or worsen to immediately return to the ER. I have low suspicion for otitis externa and will treat with oral antibiotics. Patient is recommended to follow-up with primary care. Departure Diagnosis: Primary Impression: Upper respiratory infection Condition: Stable Patient Instructions: Cough, Chronic, Uncertain Cause, (Adult) Referrals: COMMUNITY CLINICS YOU HAVE RECEIVED A MEDICAL SCREENING EXAM AND THE RESULTS INDICATE THAT YOU DO NOT HAVE A CONDITION THAT REQUIRES URGENT TREATMENT IN THE EMERGENCY DEPARTMENT. FURTHER EVALUATION AND TREATMENT OF YOUR CONDITION CAN WAIT UNTIL YOU ARE SEEN IN YOUR DOCTORS OFFICE WITHIN THE NEXT 1-2 DAYS. IT IS YOUR RESPONSIBILITY TO MAKE AN APPOINTMENT FOR FOLOW-UP CARE. IF YOU HAVE A PRIMARY DOCTOR --you should call your primary doctor and schedule an appointment IF YOU DO NOT HAVE A PRIMARY DOCTOR YOU CAN CALL OUR PHYSICIAN REFERRAL HOTLINE AT IF YOU CAN NOT AFFORD TO SEE A PHYSICIAN YOU CAN CHOSE FROM THE FOLLOWING [facility] [id number] [facility] [address] [facility] [address] [facility] [address]. [facility] [id number] [facility]. [facility] [address] Additional Instructions: FOLLOW UP WITH YOUR PRIMARY CARE PHYSICIAN TOMORROW.Return to this facility if you are not improving as expected. SAMY MAURICIO PA-C Nov 30, 2018 08:46
== END 2018-11-30 07:20 | disposition home or self-care (01) ==
LOC: FTE 06:48
DX: J06.9 Acute upper respiratory infection, unspecified (principal)
CPT/HCPCS: 99283